=== PATIENT | male | born 1960 | race Caucasian/White ===

== ENCOUNTER 2017-02-23 18:50 | Emergency (ER) | payer MEDICAID ==
[~2017-02-23] VITALS: Ht 172.7 cm; Wt 102.1 kg
[2017-02-23 19:00] VITALS: BP 134/92
[2017-02-23] MEDS ORDERED: HYDROmorphone 1 MG/ML, 1ML IM STA (20:05)
[2017-02-23] MEDS ORDERED: HYDROmorphone 1 MG/ML, 1ML ONE (20:18)
[2017-02-23] MEDS ORDERED: DILT240C80 PO (20:26)
[2017-02-23] MEDS ORDERED: BUPR300T4 PO (20:26)
[2017-02-23] MEDS ORDERED: OMEG1CAP62 PO (20:26)
[2017-02-23] MEDS ORDERED: DABI150C PO (20:26)
[2017-02-23] MEDS ORDERED: ARIP2TAB PO (20:26)
[2017-02-23] MEDS ORDERED: HYDR-3307 PO (20:26)
[2017-02-23] MEDS ORDERED: METO-99 PO (20:26)
== END 2017-02-23 21:04 | disposition home or self-care (01) ==
LOC: ED 20:58
DX: S39.012A Strain of muscle, fascia and tendon of lower back, initial encounter (principal); W10.9XXA Fall (on) (from) unspecified stairs and steps, initial encounter; Y93.89 Activity, other specified; Y92.89 Other specified places as the place of occurrence of the external cause; Y99.8 Other external cause status
CPT/HCPCS: 72072; 72110; 96372; 99284; J1170